=== PATIENT | male | born 1950 | race Hispanic/Latino ===

== ENCOUNTER 2018-07-10 11:44 | Emergency (ER) | payer MEDICARE ==
[2018-07-10 12:59] LABS: #Basophils 0.1 thou/uL (0.0-0.2); #Lymphocytes 1.6 thou/uL (1.20-3.40); #Monocytes 1.6 thou/uL (0.11-0.59); #Neutrophils 14.9 thou/uL (1.40-6.50); %Basophils 0.3 % (0.0-1.0); %Eosinophils 0.1 % (0.0-10.0); %Lymphocytes 8.8 % (21.0-51.0); %Monocytes 8.6 % (0.0-10.0); %Neutrophils 82.2 % (42.0-75.0); Hemoglobin 13.9 g/dL (14.0-18.0); Mean Corpuscular Hemoglobin 32.3 pg (27.0-31.0); Mean Corpuscular Volume 94.8 fL (78.0-98.0); Mean Platelet Volume 7.3 fL (7.4-10.4); Platelet Count 205 thou/uL (130-400); RBC Distribution Width 11.8 % (11.5-14.5); Red Blood Cell (RBC) Count 4.32 mill/uL (4.70-6.10); White Blood Cell (WBC) Count 18.1 thou/uL (4.8-10.8)
[2018-07-10 13:20] LABS: ALT (SGPT) 24 U/L (8-55); AST (SGOT) 33 U/L (5-34); Alkaline Phosphatase 42 U/L (40-150); Anion Gap 12 mmol/L (10-20); BUN (Urea Nitrogen) 19 mg/dL (8.4-25.7); Bilirubin, Total 0.5 mg/dL (0.2-1.2); Calc. Creatinine Clearance 0 mL/min (70-130); Calcium 9.6 mg/dL (7.8-10.44); Carbon Dioxide 28 mmol/L (23-31); Chloride 98 mmol/L (98-107); Estimated GFR-MDRD 52; Globulin 3.4 g/dL (2.4-3.5); Glucose 104 mg/dL (80-115); Potassium 3.4 mmol/L (3.5-5.1); Protein, Total 7.4 g/dL (5.8-8.1); Sodium 135 mmol/L (136-145)
[2018-07-10] MEDS ORDERED: Clindamycin/D5W 900 MG in Premix Bag 1 BAG IVPB SCH (14:45)
[2018-07-10] MEDS ORDERED: Vancomycin HCl 1.5 GM in Sodium Chloride 0.9% 250 ML 300 ML IVPB SCH (14:45)
[2018-07-10] MEDS ORDERED: Acetaminophen 500 MG TAB ONE (15:33)
== END 2018-07-10 18:16 | disposition home or self-care (01) ==
LOC: ERS 11:44
DX: L03.116 Cellulitis of left lower limb (principal); E11.8 Type 2 diabetes mellitus with unspecified complications; E78.5 Hyperlipidemia, unspecified; I10 Essential (primary) hypertension; Z79.899 Other long term (current) drug therapy; Z79.82 Long term (current) use of aspirin; Z79.84 Long term (current) use of oral hypoglycemic drugs
CPT/HCPCS: 36415; 80053; 85025; 87804; 96365; 96366; 96368; J3370; J3490; J7050

== ENCOUNTER 2018-11-17 21:27 | Inpatient (IN) | payer MEDICARE ==
[2018-11-17] MEDS ORDERED: Acetaminophen 500 MG TAB ONE (22:02)
--- NOTE | 2018-11-17 22:06 | RAD ---
EXAM: Single view of the chest HISTORY: Fever COMPARISON: 04/07/2013 FINDINGS: Single view of the chest shows a normal sized cardiomediastinal silhouette. There is no shara dence of consolidation, mass, or pleural effusion. The bones are unremarkable. IMPRESSION: No evidence of acute cardiopulmonary disease
[2018-11-17 22:09] LABS: #Basophils 0.1 thou/uL (0.0-0.2); #Lymphocytes 0.7 thou/uL (1.20-3.40); #Neutrophils 16.2 thou/uL (1.40-6.50); %Basophils 0.7 % (0.0-1.0); %Eosinophils 0.1 % (0.0-10.0); %Lymphocytes 3.8 % (21.0-51.0); %Monocytes 5.6 % (0.0-10.0); %Neutrophils 89.8 % (42.0-75.0); Mean Corpuscular HGB CONC 35.8 g/dL (32.0-36.0); Mean Corpuscular Hemoglobin 32.1 pg (27.0-31.0); Mean Corpuscular Volume 89.7 fL (78.0-98.0); Mean Platelet Volume 7.1 fL (7.4-10.4); Platelet Count 225 thou/uL (130-400); RBC Distribution Width 11.5 % (11.5-14.5); Red Blood Cell (RBC) Count 4.66 mill/uL (4.70-6.10)
[2018-11-17 22:22] LABS: ALT (SGPT) 34 U/L (8-55); AST (SGOT) 24 U/L (5-34); Albumin 4.5 g/dL (3.4-4.8); Alkaline Phosphatase 55 U/L (40-150); Anion Gap 14 mmol/L (10-20); BUN (Urea Nitrogen) 22 mg/dL (8.4-25.7); Bilirubin, Total 0.4 mg/dL (0.2-1.2); CK (CPK) 175 U/L (30-200); Calc. Creatinine Clearance 0 mL/min (70-130); Calcium 10.2 mg/dL (7.8-10.44); Carbon Dioxide 26 mmol/L (23-31); Chloride 102 mmol/L (98-107); Estimated GFR-MDRD 62; Globulin 3.4 g/dL (2.4-3.5); Glucose 131 mg/dL (80-115); Protein, Total 7.9 g/dL (5.8-8.1); Sodium 138 mmol/L (136-145)
[2018-11-17] MEDS ORDERED: Piperacillin/Tazobactam 3.375 GM VIAL ONE (22:22)
[2018-11-17 23:04] LABS: Bilirubin Negative (Negative); Blood, Urine Moderate (Negative); Clarity Slightly Cloudy (Clear); Glucose, Urine (Dipstick) Negative (Negative); Leukocyte Negative (Negative); Nitrite Negative (Negative); Protein, Urine (Dipstick) Negative (Neg-Trace); Specific Gravity, Urine 1.015 (1.005-1.030); Urobilinogen 0.2 mg/dL (0.2-1.0)
[2018-11-17 23:11] LABS: Bacteria/HPF None Seen HPF (None Seen); Hyaline Casts/LPF NONE SEEN LPF (0-3 Hyaline); Squamous Epithelial 0-3 HPF (0-3); WBC/HPF 0-3 HPF (0-3)
[2018-11-17] MEDS ORDERED: Azithromycin 250 MG TAB ONE (23:13)
[2018-11-18] MEDS ORDERED: Sodium Chloride 0.9% 1,000 ML IV SCH (00:36)
[2018-11-18] MEDS ORDERED: HYDROcodone/Acetaminophen 5/325 mg Tablet PO PRN ×2 (00:36)
[2018-11-18] MEDS ORDERED: Acetaminophen 325 MG TAB PO PRN (00:36)
[2018-11-18] MEDS ORDERED: Ondansetron ODT 4 MG TAB SL PRN (00:36)
[2018-11-18] MEDS ORDERED: Ondansetron PF 4 MG/2 ML Vial IVP PRN (00:36)
[2018-11-18 01:05] VITALS: BMI 39.0
[2018-11-18] MEDS ORDERED: Acetaminophen 650 MG Suppository PR PRN (02:02)
[2018-11-18] MEDS ORDERED: HumaLOG 300 UNITS/3 ML VIAL SC PRN ×2 (02:05)
[2018-11-18] MEDS ORDERED: Dextrose 50% Abboject 50 ML SYRINGE SLOW IVP PRN (02:05)
[2018-11-18] MEDS ORDERED: Dextrose 5% in Water 1,000 ML IV PRN (02:05)
[2018-11-18] MEDS ORDERED: Sodium Chloride 0.9% 100 ML ONE (03:33)
--- NOTE | 2018-11-18 04:23 | HP ---
CHIEF COMPLAINT: Altered mental status and left lower leg swelling and redness. HISTORY OF PRESENT ILLNESS: Mr. Dotson is a very pleasant 68-year-old man with a known history of diabetes mellitus and recurrent left leg cellulitis, who was brought in to the emergency department by his family due to an episode of confusion earlier this afternoon. The patient apparently had no loss of consciousness, syncope, or speech disturbances. No apparent neuro deficits, but was confused. He also began to have a persistent cough and then noted recurrent swelling and redness in the left leg. He has been treated for multiple episodes of left lower leg cellulitis. The patient is currently back at baseline in terms of his mentation. He is feeling flushed and on arrival was noted to have a temperature of 103.8. He is tachycardic at 125 with O2 saturations of 98% on room air. The patient denies experiencing any shortness of breath and does not smoke or require oxygen at baseline. He underwent laboratory studies, which were notable for an elevated white count of 18, but a normal lactate of 1.5. The patient had a urinalysis done showing moderate blood, otherwise unremarkable. He also had a chest x-ray done, which demonstrated no evidence of acute cardiopulmonary disease. The patient is therefore deemed to have sepsis associated with left lower leg cellulitis. Apparently, he did travel to [place], but that was 3 weeks ago. 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 He denies having any injury to the left lower leg, but there is a very small excoriation on the anterior leg. No open wound. No oozing or discharge. No bleeding. He reports 8/10 sensation in the calf. Has not had any recent long car drives or flights. REVIEW OF SYSTEMS: The patient denies having any fevers until today and appears feeling generally malaise. Denies having any nausea or vomiting. No abdominal pain or cramping. He has been moving his bowels as normal. Denies having any dysuria, or hematuria. He says the cough he developed today was dry and he denies experiencing any hemoptysis. No shortness of breath or chest pain. No dizziness or blurred vision. No speech changes. No extremity weakness or numbness. All other review of systems are negative. PAST MEDICAL HISTORY: 1. Diabetes type 2. 2. Hyperlipidemia. 3. Hypertension. 4. Alcohol abuse. 5. Morbid obesity. PAST SURGICAL HISTORY: Right middle finger surgery. SOCIAL HISTORY: The patient states he no longer drinks on a daily basis, but he does drink two to three 12-ounce beers on Monday and again on Monday. Denies any tobacco use or illicit drug use. He is fully independent. ALLERGIES: NO KNOWN DRUG ALLERGIES. CURRENT MEDICATIONS: 1. Lisinopril. 2. Amlodipine. 3. Aspirin 81 mg p.o. daily. 4. Metformin 500 mg once a day. PHYSICAL EXAMINATION: GENERAL: The patient appears flushed, but in no acute distress. VITAL SIGNS: Temperature 98.4, pulse 119, respirations 20, O2 saturation 93% on 3 L per nasal cannula, blood pressure 115/59. HEENT: Normocephalic and atraumatic. Pupils are equal, round, and reactive to light. Sclerae are icterus. Oropharynx is clear. Oropharynx without any pharyngeal erythema or exudates. No lesions in the oral mucosa. NECK: Supple without lymphadenopathy. LUNGS: Clear to auscultation with reduced breath sounds at the bilateral bases. CARDIAC: Regular rate and rhythm. No chest wall tenderness. ABDOMEN: Obese, distended, but soft. No guarding or rigidity. No renal angle tenderness. EXTREMITIES: Left lower leg notable for swelling, warmth, and erythema of the lower leg. The patient states the erythema has improved since leaving the ER. No pitting edema present. Small excoriation on the lateral aspect of the lower leg measuring approximately a cm. NEUROLOGIC: Alert and oriented x3. No neuro deficits. Power 5/5 in all limbs. Facial movements normal. Sensation intact. No tongue deviation. Speech normal. SKIN: As mentioned, the patient with facial flushing. LABORATORY DATA: White blood count 19, hemoglobin 15, hematocrit 41.8, platelets 225. Sodium 138, potassium 4.0, BUN 22, creatinine 1.17, GFR 62, glucose 134, lactic acid 1.5, calcium 10.2, total bilirubin 0.4, AST 24, ALT 34, alkaline phosphatase 55. CK 175. Troponin negative. BNP 27.7. Albumin 4.5. Urinalysis, moderate blood, otherwise unremarkable. IMAGING DATA: As mentioned above, no acute cardiopulmonary process noted. IMPRESSION AND PLAN: Mr. Dotson is a pleasant 68-year-old man being admitted for management of the followin. Sepsis secondary to left leg cellulitis. The patient has had frequent infections in the past. We will continue current antibiotics of Zosyn and vancomycin. The patient with a cough that began today and low sats requiring oxygen with no known history of COPD or underlying lung disease. Azithromycin will be added on. We will give Tessalon Perles and guaifenesin. We will continue to monitor. At present, cough is nonproductive. We will add on respiratory viral pathogen panel. Blood cultures are pending. 2. Per Dr. Chapman's recommendation consult has been placed to Dr. Sanchez given the fact that he has had such frequent infections with cellulitis. We will obtain venous Doppler and add on D-dimer. 3. Altered mental status. Believed to be associated with infection. He did have a CT brain requested prior to coming here and that has not been done yet. We will not cancel although the patient is at baseline and denies any headaches, neuro deficits, speech or vision disturbances and no syncope or loss of consciousness. 4. Diabetes mellitus. Insulin sliding scale initiated. We will continue to monitor glucose. 5. Hypertension. Resume home medications and monitor blood pressure. 6. GI prophylaxis. 7. Full code status. His surrogate decision maker is his , Nellie Dotson. The patient's case was discussed with Dr. Chapman, who agrees with the plan of care as described above. Job ID: [id number]
[2018-11-18] MEDS: Acetaminophen 325 MG TAB PO PRN ×2 (05:06→21:13)
[2018-11-18] MEDS ORDERED: Piperacillin/Tazobactam 3.375 GM in Sodium Chloride 0.9% 100 ML IVPB SCH ×2 (06:00→15:00)
[2018-11-18 07:43] LABS: Lactic Acid 1.9 mmol/L (0.5-2.2)
[2018-11-18 07:45] LABS: Alcohol Less than 10 mg/dL (Less than 10); Anion Gap 10 mmol/L (10-20); BUN (Urea Nitrogen) 16 mg/dL (8.4-25.7); Calc. Creatinine Clearance 103 mL/min (70-130); Calcium 8.9 mg/dL (7.8-10.44); Carbon Dioxide 27 mmol/L (23-31); Chloride 103 mmol/L (98-107); Estimated GFR-MDRD 70; Glucose 133 mg/dL (80-115); Potassium 3.5 mmol/L (3.5-5.1); Sodium 136 mmol/L (136-145)
[2018-11-18] MEDS: Famotidine/PF 20 mg/2ml Vial SLOW IVP SCH ×2 (09:37→21:12)
[2018-11-18] MEDS: Amlodipine 10 MG TAB PO SCH (09:37)
[2018-11-18] MEDS: Lisinopril/Hydrochlorothiazide 20 mg/12.5 mg Tablet PO SCH ×2 (09:37→21:12)
[2018-11-18] MEDS ORDERED: Vancomycin HCl 1 GM in Premix Bag 1 BAG IVPB SCH ×2 (10:00→21:00)
--- NOTE | 2018-11-18 11:05 | ULT ---
EXAM: Bilateral lower extremity venous duplex: Deep veins evaluated with color Doppler, spectral analysis, and compression. INDICATIONS: Bilateral lower extremity pain and edema. FINDINGS: Deep veins interrogated include common femoral vein, femoral vein, popliteal vein, and post erior tibial vein. These veins show normal compression and blood flow. No evidence of DVT. IMPRESSION: Negative Bilateral venous duplex exam.
--- NOTE | 2018-11-18 11:32 | RAD ---
CHEST 2 VIEWS: HISTORY: Evaluate for fluid overload. COMPARISON: 11/17/2018. FINDINGS: Atherosclerosis of the aorta. Cardiomegaly. Pulmonary vessels are prominent. Costophrenic angles a re clear. Hyperinflation with chronic changes. No consolidation or mass. No pneumothorax or osseou s abnormalities. There is a sclerotic focus involving the proximal left humerus, incompletely evalua zachary. 3. Incompletely evaluated sclerotic focus in the proximal humerus. IMPRESSION: 1. Hyperinflation. Chronic changes. 2. Cardiomegaly. Correlate for volume overload. POS: OFF
[2018-11-18 12:04] LABS: Band 5 % (5-11); Hemoglobin 13.5 g/dL (14.0-18.0); Lymphocytes 8 % (21-51); MDiff Complete? YES; Mean Corpuscular HGB CONC 34.4 g/dL (32.0-36.0); Mean Corpuscular Hemoglobin 32.4 pg (27.0-31.0); Mean Corpuscular Volume 94.2 fL (78.0-98.0); Mean Platelet Volume 7.6 fL (7.4-10.4); Monocytes 2 % (0-10); Neutrophil 76 % (42-75); Platelet Count 179 thou/uL (130-400); Platelet Morphology Comment Appears Adequate; RBC Distribution Width 11.9 % (11.5-14.5); Reactive Lymphocytes 9 % (0-10); Red Blood Cell (RBC) Count 4.15 mill/uL (4.70-6.10); White Blood Cell (WBC) Count 19.7 thou/uL (4.8-10.8)
--- NOTE | 2018-11-18 13:35 | PDOC.PN ---
- Subjective Encounter Start Date: 11/18/18 Encounter Start Time: 13:33 Patient remains sleepy. Daughter is in the room. She says he is sleepy and "delerious". She also says this is consistent with the way he has behaved in the past when he has had infection in his leg. She does agree that he snores loudly. Dr. Mayer has recommended a sleep study, be he has not done that yet. - Objective Resuscitation Status - Order Detail: 11/18/18 02:02 Resuscitation Status Routine Co-Sign Provider: Resuscitation Status: FULL: Full Resuscitation Vital Signs & Weight: Vital Signs (12 hours) Temp Pulse Resp BP Pulse Ox 11/18/18 11:34 98.7 F 83 18 141/67 H 93 L 11/18/18 07:26 99.3 F 83 20 124/56 L 96 11/18/18 05:57 99.2 F 11/18/18 04:00 101.2 F H 107 H 18 144/74 H 95 Weight Weight 241 lb 12.8 oz I&O: 11/17/18 11/18/18 11/19/18 06:59 06:59 06:59 Intake Total 120 Output Total 200 475 Balance -80 -475 Result Diagrams: 11/18/18 11:15 11/18/18 07:07 Additional Labs: Accuchecks 11/18/18 11/18/18 11/17/18 10:56 05:53 21:50 POC Glucose 161 H 134 H 134 H Phys Exam - Physical Examination Constitutional: NAD Obese Very large neck/double chin. Respiratory: no wheezing Not snoring and sounds like he is moving air reasonably well. Cardiovascular: RRR, no significant murmur Gastrointestinal: soft, non-tender, no distention, positive bowel sounds LLE with dense erythema and warmth. Blanches. No discrete lesions. Somnolent. Will awaken, but right back to sleep. Dx/Plan (1) Sepsis Code(s): A41.9 - SEPSIS, UNSPECIFIED ORGANISM Status: Acute (2) Cellulitis of left leg without foot Code(s): L03.116 - CELLULITIS OF LEFT LOWER LIMB Status: Acute (3) Obesity (BMI 30-39.9) Code(s): E66.9 - OBESITY, UNSPECIFIED Status: Acute (4) Diabetes mellitus Code(s): E11.9 - TYPE 2 DIABETES MELLITUS WITHOUT COMPLICATIONS Status: Acute (5) Acute metabolic encephalopathy Code(s): G93.41 - METABOLIC ENCEPHALOPATHY Status: Acute (6) HTN (hypertension) Code(s): I10 - ESSENTIAL (PRIMARY) HYPERTENSION Status: Acute - Plan * CT head. Apparently was requested for the ED to perform prior to transfer, but not done yet. * ABG. May have some hypoventilation of obesity syndrome or JENNIFER with retention to explain the encephalopathy. * Encephalopathy likely just from sepsis. * Renew Vanc/Zosyn. * Doesn't sound like his alcohol use is substantial enough to cause serious consequences with cessation, but will monitor closely.
[2018-11-18 14:19] LABS: Actual Bicarbonate (HCO3a) 26.5 mEq/L (22-28); Base Excess (BEa) 3.3 mEq/L (-2.0 to +3.0); CO2 Tension 35.6 mmHg (35.0-45.0); Calcium, Ionized 1.16 mmol/L (1.12-1.30); Carboxyhemoglobin (COHb) 0.9 gm% (0.0-3.0); Hemoglobin (Hb) 13.3 g/dL (14.0-18.0); Potassium - ABG Lab 3.35 mmol/L (3.70-5.30); pH, Arterial 7.49 (7.35-7.45)
[2018-11-18 14:20] LABS: O2 Tension (PaO2) 57.5 mmHg (> 80.0); Puncture Site RRA
--- NOTE | 2018-11-18 14:50 | CT ---
CT Brain WO Con: 11/18/2018 1:30 PM CLINICAL HISTORY: Encephalopathy. COMPARISON: None. FINDINGS: Hemorrhage: None. Ventricular system: Normal in size and morphology for the patient's age. Cerebral parenchyma: Microvascular ischemic disease Midline shift: None. 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 Visualized Paranasal sinuses: Clear. IMPRESSION: No acute intracranial abnormalities. Pineal cyst. Follow-up pre and postcontrast brain MRI, nonemergent, is recommended for further evalua tion. CODE T
[2018-11-18] MEDS: cefTRIAXone\\ROCEPHIN 1 GM in Sodium Chloride 0.9% 100 ML IVPB SCH (17:55)
--- NOTE | 2018-11-18 19:38 | CON ---
DATE OF CONSULTATION: REASON FOR CONSULTATION: Cellulitis. HISTORY OF PRESENT ILLNESS: A 68-year-old with history of obesity, alcohol dependency syndrome, type 2 diabetes, prior episodes of cellulitis, developed confusional state and erythematous changes in left leg. Apparently, he had been in the emergency room, but they did not have beds, so he was treated in the outpatient setting with reportedly a quinolone by his primary physician. Because of persistence of changes in the altered mental status, he was admitted. He also complains of dysuria for the past 24 to 48 hours. No headaches. No visual symptoms, sore throat, odynophagia, or dysphagia. No dyspnea or cough. No chest pain. No abdominal pain. No diarrhea. No joint symptoms. No neurological symptoms except for altered mental status, which has resolved. PAST MEDICAL HISTORY: Type 2 diabetes; hyperlipidemia; obesity; hypertension; alcohol dependency syndrome; and prior episodes of cellulitis, this is the #4th. SOCIAL HISTORY: Apparently has cut down on the amount of drinking. He does more of a binge drinking pattern on the weekends. ALLERGIES: NONE. FAMILY HISTORY: Diabetes. CURRENT MEDICATIONS: 1. Tylenol. 2. Norvasc. 3. Aspirin. 4. Lipitor. 5. Azithromycin. 6. Famotidine. 7. Lisinopril. 8. Zosyn. 9. Vancomycin. PHYSICAL EXAMINATION: VITAL SIGNS: T-max 101.2, blood pressure 140/60, pulse 83, and respirations 18. SKIN: Shows circumferential erythema, left leg, in very symmetric distribution extending from the area immediately below the knee all the way to the ankle. HEENT: He has skin flushing in the facial area. Some periorbital edema. Mild conjunctival hyperemia. Pupils are equal. Oral cavity normal. NECK: Supple. No jugular vein distention. No lymphadenopathy. LUNGS: Symmetric air entry. No wheezing. No crackles. HEART: S1 and S2. Regular rate. ABDOMEN: Soft. Globose, not tender. No ascites. No bladder distention. No organomegaly. EXTREMITIES: No joint inflammatory activity. Pulses are 1+ in dorsalis pedis. Able to move extremities equally. NEUROLOGIC: Awake, oriented, follows commands. LABORATORY DATA: White cell count is 18,000, now 19,000; hemoglobin 13; platelets 179, neutrophil percentage is down to 76%. INR was not done. ABG; pH of 7.49, pCO2 of 35, and pO2 of 57. Chemistry was unremarkable except for glucose of 131. Liver profile normal. Albumin 4.5. Urinalysis from 11/17 was normal except for moderate blood. Respiratory virus PCR negative. IMAGING DATA: Brain CT with no significant findings except for pineal cyst. Followup MRI recommended. Chest x-ray; hyperinflation, cardiomegaly. ASSESSMENT: 1. Obesity. 2. Alcohol dependency syndrome. 3. Type 2 diabetes with recurrent episodes of cellulitis at this time in the left leg. PLAN: Switch him to Rocephin. Discontinue other antimicrobials. Beta-hemolytic streptococci is the most likely scenario. He may have steatohepatitis associated with it. Once there is further improvement, transitioned to oral Keflex for discharge planning and then suppressive Pen VK for protracted period of time and compressive stockings. He does have dysuria, but urinalysis was normal. May have prostatitis or other urinary issues such as stricture. May need Urology consultation if dysuria persists. Job ID: [id number]
[2018-11-18] MEDS ORDERED: Non-Formulary Item 1 EACH (Pravastatin Sodium [Pravachol] 80 MG) PO SCH (21:00)
[2018-11-18] MEDS: Atorvastatin Calcium 20 MG TAB PO SCH (21:12)
[2018-11-18] MEDS ORDERED: Vancomycin HCl 1.25 GM in Sodium Chloride 0.9% 250 ML 250 ML IVPB SCH (22:00)
[2018-11-18] MEDS ORDERED: Azithromycin 500 MG in Sodium Chloride 0.9% 250 ML 250 ML IVPB SCH (23:00)
[2018-11-19] MEDS: metFORMIN 500 MG TAB PO SCH (09:33)
[2018-11-19] MEDS: Amlodipine 10 MG TAB PO SCH (09:33)
[2018-11-19] MEDS: Aspirin Chewable 81 MG TAB PO SCH (09:34)
[2018-11-19] MEDS: Famotidine/PF 20 mg/2ml Vial SLOW IVP SCH (09:34)
[2018-11-19] MEDS: Lisinopril/Hydrochlorothiazide 20 mg/12.5 mg Tablet PO SCH ×2 (09:34→21:27)
--- NOTE | 2018-11-19 10:44 | PDOC.PN ---
- Subjective Encounter Start Date: 11/19/18 Encounter Start Time: 07:50 -: old records requested/rev Patient seen and examined. No new complaints. No overnight events - Objective Resuscitation Status - Order Detail: 11/18/18 02:02 Resuscitation Status Routine Co-Sign Provider: Resuscitation Status: FULL: Full Resuscitation MAR Reviewed: Yes Vital Signs & Weight: Vital Signs (12 hours) Temp Pulse Resp BP BP Pulse Ox 11/19/18 09:34 75 113/54 L 11/19/18 09:33 75 113/54 L 11/19/18 09:00 98.6 F 75 19 113/54 L 95 11/19/18 04:14 98.5 F 74 17 116/56 L 92 L 11/19/18 00:14 98.4 F 79 20 104/54 L 96 Weight Weight 238 lb 6.4 oz I&O: 11/18/18 11/19/18 11/20/18 06:59 06:59 06:59 Intake Total 120 300 Output Total 200 825 Balance -80 -525 Result Diagrams: 11/18/18 11:15 11/18/18 07:07 Additional Labs: Accuchecks 11/19/18 11/18/18 11/18/18 06:00 21:06 16:55 POC Glucose 116 H 122 H 132 H 11/18/18 10:56 POC Glucose 161 H EKG Reviewed by me: Yes Phys Exam - Physical Examination Constitutional: NAD HEENT: PERRLA, moist MMs, sclera anicteric Neck: no JVD, supple Respiratory: no wheezing, no rales, no rhonchi Cardiovascular: RRR, no significant murmur, no rub Gastrointestinal: soft, non-tender, no distention, positive bowel sounds obesity+ left leg cellulitis Neurological: non-focal, normal sensation, moves all 4 limbs Lymphatic: no nodes Psychiatric: normal affect, A&O x 3 Skin: no rash, normal turgor Dx/Plan (1) Acute metabolic encephalopathy Code(s): G93.41 - METABOLIC ENCEPHALOPATHY Status: Acute (2) Cellulitis of left leg without foot Code(s): L03.116 - CELLULITIS OF LEFT LOWER LIMB Status: Acute (3) Sepsis Code(s): A41.9 - SEPSIS, UNSPECIFIED ORGANISM Status: Acute (4) Diabetes type 2, controlled Code(s): E11.9 - TYPE 2 DIABETES MELLITUS WITHOUT COMPLICATIONS Status: Chronic (5) Dyslipidemia Code(s): E78.5 - HYPERLIPIDEMIA, UNSPECIFIED Status: Chronic (6) HTN (hypertension) Code(s): I10 - ESSENTIAL (PRIMARY) HYPERTENSION Status: Chronic (7) Obesity (BMI 30-39.9) Code(s): E66.9 - OBESITY, UNSPECIFIED Status: Chronic - Plan cont current plan of care, plan discussed w/ family, continue antibiotics * continue rocephin as per ID * medication reviewed as below * symptomatic treatment * pt is clinically improving. * repeat labs tomorrow * pain control Review of Systems - Review of Systems ENT: negative: Ear Pain, Ear Discharge, Nose Pain, Nose Discharge, Nose Congestion, Mouth Pain, Mouth Swelling, Throat Pain, Throat Swelling, Other Respiratory: negative: Cough, Dry, Shortness of Breath, Hemoptysis, SOB with Excertion, Pleuritic Pain, Sputum, Wheezing Cardiovascular: negative: chest pain, palpitations, orthopnea, paroxysmal nocturnal dyspnea, edema, light headedness, other Gastrointestinal: negative: Nausea, Vomiting, Abdominal Pain, Diarrhea, Constipation, Melena, Hematochezia, Other Genitourinary: negative: Dysuria, Frequency, Incontinence, Hematuria, Retention , Other Musculoskeletal: Leg Pain. negative: Neck Pain, Shoulder Pain, Arm Pain, Back Pain, Hand Pain, Foot Pain, Other - Medications/Allergies Allergies/Adverse Reactions: Allergies Allergy/AdvReac Type Severity Reaction Status Date / Time sulfamethoxazole Allergy Verified 11/18/18 04:39 [From Bactrim] trimethoprim [From Bactrim] Allergy Verified 11/18/18 04:39 Medications: Current Medications Acetaminophen (Tylenol) 650 mg DC Q4H PRN PRN Reason: Headache/Fever/Mild Pain (1-3) Acetaminophen (Tylenol) 650 mg PO Q4H PRN PRN Reason: Fever > 101 Last Admin: 11/18/18 21:13 Dose: 650 mg Amlodipine Besylate (Norvasc) 10 mg PO DAILY [facility] Last Admin: 11/19/18 09:33 Dose: 10 mg Aspirin (Aspirin Chewable) 81 mg PO DAILY [facility] Last Admin: 11/19/18 09:34 Dose: 81 mg Atorvastatin Calcium (Lipitor) 20 mg PO [facility] Last Admin: 11/18/18 21:12 Dose: 20 mg Dextrose/Water (Dextrose 50%) 25 gm SLOW IVP PRN PRN PRN Reason: Hypoglycemia Famotidine (Pepcid) 20 mg SLOW IVP Q12HR [facility] Last Admin: 11/19/18 09:34 Dose: 20 mg Glucagon (Glucagon) 1 mg IM PRN PRN PRN Reason: Hypoglycemia Lisinopril/HCTZ (Prinizide 20-12.5) 1 tab PO BID [facility] Last Admin: 11/19/18 09:34 Dose: 1 tab Dextrose/Water (D5w) 1,000 mls @ 0 mls/hr IV .Q0M PRN PRN Reason: Hypoglycemia Ceftriaxone Sodium 1 gm/ (Sodium Chloride) 100 mls @ 200 mls/hr IVPB 1600 [facility] Last Admin: 11/18/18 17:55 Dose: 100 mls Insulin Human Lispro (Humalog) 0 units SC .MILD SLIDING SCALE PRN PRN Reason: Mild Correctional Scale Insulin Human Lispro (Humalog) 0 units SC .BEDTIME SLIDING SC PRN PRN Reason: Bedtime Correctional Scale Metformin HCl (Glucophage) 500 mg PO QAM-WM [facility] Last Admin: 11/19/18 09:33 Dose: 500 mg Miscellaneous Medication (Pharmacy To Dose) 1 each IVPB PRN PRN PRN Reason: . Sodium Chloride (Flush - Normal Saline) 10 ml IVF Q12HR [facility] Last Admin: 11/19/18 09:34 Dose: 10 ml Sodium Chloride (Flush - Normal Saline) 10 ml IVF PRN PRN PRN Reason: Saline Flush Last Admin: 11/18/18 17:58 Dose: 10 ml
[2018-11-19] MEDS ORDERED: HYDROcodone/Acetaminophen 5/325 mg Tablet PO PRN (11:32)
[2018-11-19] MEDS ORDERED: hydrALAZINE 20 MG/ML VIAL SLOW IVP PRN (11:32)
[2018-11-19] MEDS ORDERED: Loperamide HCl 2 MG CAP PO PRN (11:32)
[2018-11-19] MEDS ORDERED: Diabetic Tussin 200 MG/10 ML UDCUP PO PRN (11:32)
[2018-11-19] MEDS ORDERED: Senokot S 8.6-50 MG TAB PO PRN (11:32)
[2018-11-19] MEDS ORDERED: Sodium Chloride 0.65% Nasal 44 ML BOT EA NARE PRN (11:32)
[2018-11-19] MEDS ORDERED: Ondansetron PF 4 MG/2 ML Vial IVP PRN (11:32)
[2018-11-19] MEDS ORDERED: Cepastat Lozenges 1 LOZ PO PRN (11:32)
[2018-11-19] MEDS ORDERED: Zolpidem Tartrate 5 MG TAB PO PRN (11:32)
[2018-11-19] MEDS ORDERED: Artificial Tears 18 DROP/0.9 ML EA EYE PRN (11:32)
[2018-11-19] MEDS ORDERED: Loratadine 10 MG TAB PO PRN (11:32)
[2018-11-19] MEDS ORDERED: Bisacodyl 10 MG SUPP PR PRN (11:32)
[2018-11-19] MEDS ORDERED: Ondansetron ODT 4 MG TAB PO PRN (11:32)
[2018-11-19] MEDS: cefTRIAXone\\ROCEPHIN 1 GM in Sodium Chloride 0.9% 100 ML IVPB SCH (15:39)
[2018-11-19] MEDS: Atorvastatin Calcium 20 MG TAB PO SCH (21:27)
[2018-11-19] MEDS: Famotidine 20 MG TAB PO SCH (21:27)
[2018-11-19] MEDS: Acetaminophen 325 MG TAB PO PRN (21:28)
[2018-11-19 22:25] LABS: Vancomycin, Trough 1.7 ug/mL
[2018-11-20 06:11] LABS: #Eosinphils 0.2 thou/uL (0.0-0.7); #Lymphocytes 1.7 thou/uL (1.20-3.40); #Monocytes 1.4 thou/uL (0.11-0.59); #Neutrophils 7.4 thou/uL (1.40-6.50); %Basophils 0.2 % (0.0-1.0); %Eosinophils 1.4 % (0.0-10.0); %Lymphocytes 16.1 % (21.0-51.0); %Monocytes 12.8 % (0.0-10.0); %Neutrophils 69.5 % (42.0-75.0); Hemoglobin 13.2 g/dL (14.0-18.0); Mean Corpuscular HGB CONC 33.6 g/dL (32.0-36.0); Mean Corpuscular Hemoglobin 31.7 pg (27.0-31.0); Mean Corpuscular Volume 94.3 fL (78.0-98.0); Mean Platelet Volume 7.9 fL (7.4-10.4); Platelet Count 173 thou/uL (130-400); RBC Distribution Width 11.8 % (11.5-14.5); Red Blood Cell (RBC) Count 4.16 mill/uL (4.70-6.10); White Blood Cell (WBC) Count 10.7 thou/uL (4.8-10.8)
[2018-11-20 06:32] LABS: Anion Gap 11 mmol/L (10-20); BUN (Urea Nitrogen) 11 mg/dL (8.4-25.7); CRP (Inflammatory) 16.14 mg/dL (= or < 0.5); Calc. Creatinine Clearance 116 mL/min (70-130); Calcium 9.3 mg/dL (7.8-10.44); Carbon Dioxide 30 mmol/L (23-31); Chloride 100 mmol/L (98-107); Estimated GFR-MDRD 82; Glucose 104 mg/dL (80-115); Potassium 3.5 mmol/L (3.5-5.1); Sodium 137 mmol/L (136-145)
[2018-11-20] MEDS ORDERED: Sodium Chloride 0.9% 10 ML ONE (07:59)
[2018-11-20] MEDS: metFORMIN 500 MG TAB PO SCH (08:41)
[2018-11-20] MEDS: Amlodipine 10 MG TAB PO SCH (08:41)
[2018-11-20] MEDS: Famotidine 20 MG TAB PO SCH ×2 (08:41→20:31)
[2018-11-20] MEDS: Saccharomyces boulardii 250 MG CAP PO SCH (08:41)
[2018-11-20] MEDS: Aspirin Chewable 81 MG TAB PO SCH (08:41)
[2018-11-20] MEDS: Lisinopril/Hydrochlorothiazide 20 mg/12.5 mg Tablet PO SCH ×2 (08:41→20:31)
--- NOTE | 2018-11-20 11:08 | PDOC.PN ---
- Subjective Encounter Start Date: 11/20/18 Encounter Start Time: 07:50 Patient seen and examined. No new complaints. No overnight events pt has less leg pain, less edema and able to walk - Objective Resuscitation Status - Order Detail: 11/18/18 02:02 Resuscitation Status Routine Co-Sign Provider: Resuscitation Status: FULL: Full Resuscitation MAR Reviewed: Yes Vital Signs & Weight: Vital Signs (12 hours) Temp Pulse Resp BP Pulse Ox 11/20/18 08:40 99.3 F 73 18 130/60 94 L 11/20/18 04:05 98.5 F 72 18 125/58 L 92 L 11/20/18 00:00 98.3 F 68 20 111/56 L 95 Weight Weight 238 lb 6.4 oz I&O: 11/19/18 11/20/18 11/21/18 06:59 06:59 06:59 Intake Total 300 1260 Output Total 825 Balance -525 1260 Result Diagrams: 11/20/18 05:26 11/20/18 05:26 Additional Labs: Accuchecks 11/20/18 11/19/18 11/19/18 05:19 20:38 17:02 POC Glucose 112 H 121 H 107 EKG Reviewed by me: Yes Phys Exam - Physical Examination Constitutional: NAD HEENT: PERRLA, moist MMs, sclera anicteric Neck: no JVD, supple Respiratory: no wheezing, no rales, no rhonchi Cardiovascular: RRR, no significant murmur, no rub Gastrointestinal: soft, non-tender, no distention, positive bowel sounds Musculoskeletal: pulses present left leg cellulitis improving Neurological: non-focal, normal sensation, moves all 4 limbs Lymphatic: no nodes Psychiatric: normal affect, A&O x 3 Skin: no rash, normal turgor Dx/Plan (1) Acute metabolic encephalopathy Code(s): G93.41 - METABOLIC ENCEPHALOPATHY Status: Acute (2) Cellulitis of left leg without foot Code(s): L03.116 - CELLULITIS OF LEFT LOWER LIMB Status: Acute (3) Sepsis Code(s): A41.9 - SEPSIS, UNSPECIFIED ORGANISM Status: Acute (4) Diabetes type 2, controlled Code(s): E11.9 - TYPE 2 DIABETES MELLITUS WITHOUT COMPLICATIONS Status: Chronic (5) Dyslipidemia Code(s): E78.5 - HYPERLIPIDEMIA, UNSPECIFIED Status: Chronic (6) HTN (hypertension) Code(s): I10 - ESSENTIAL (PRIMARY) HYPERTENSION Status: Chronic (7) Obesity (BMI 30-39.9) Code(s): E66.9 - OBESITY, UNSPECIFIED Status: Chronic - Plan cont current plan of care, plan discussed w/ family, continue antibiotics * medication reviewed as below * symptomatic treatment * continue rocephin * DC tele * transfer to medical * expecting discharge tomorrow on oral antibiotics * pain controlled. Review of Systems - Review of Systems Eyes: negative: Pain, Vision Change, Conjunctivae Inflammation, Eyelid Inflammation, Redness, Other ENT: negative: Ear Pain, Ear Discharge, Nose Pain, Nose Discharge, Nose Congestion, Mouth Pain, Mouth Swelling, Throat Pain, Throat Swelling, Other Respiratory: negative: Cough, Dry, Shortness of Breath, Hemoptysis, SOB with Excertion, Pleuritic Pain, Sputum, Wheezing Cardiovascular: negative: chest pain, palpitations, orthopnea, paroxysmal nocturnal dyspnea, edema, light headedness, other Gastrointestinal: negative: Nausea, Vomiting, Abdominal Pain, Diarrhea, Constipation, Melena, Hematochezia, Other Genitourinary: negative: Dysuria, Frequency, Incontinence, Hematuria, Retention , Other Musculoskeletal: Leg Pain. negative: Neck Pain, Shoulder Pain, Arm Pain, Back Pain, Hand Pain, Foot Pain, Other - Medications/Allergies Allergies/Adverse Reactions: Allergies Allergy/AdvReac Type Severity Reaction Status Date / Time sulfamethoxazole Allergy Verified 11/18/18 04:39 [From Bactrim] trimethoprim [From Bactrim] Allergy Verified 11/18/18 04:39 Medications: Current Medications Acetaminophen (Tylenol) 650 mg PO Q4H PRN PRN Reason: Fever > 101 Last Admin: 11/19/18 21:28 Dose: 650 mg Hydrocodone Bitart/Acetaminophen ([place] 5/325) 1 tab PO Q4H PRN PRN Reason: Moderate Pain (4-6) Amlodipine Besylate (Norvasc) 10 mg PO DAILY [facility] Last Admin: 11/20/18 08:41 Dose: 10 mg Artificial Tears (Tears Naturale) 2 drop EA EYE PRN PRN PRN Reason: Dry Eyes Aspirin (Aspirin Chewable) 81 mg PO DAILY [facility] Last Admin: 11/20/18 08:41 Dose: 81 mg Atorvastatin Calcium (Lipitor) 20 mg PO HS [facility] Last Admin: 11/19/18 21:27 Dose: 20 mg Bisacodyl (Dulcolax) 10 mg OR DAILYPRN PRN PRN Reason: Constipation Dextrose/Water (Dextrose 50%) 25 gm SLOW IVP PRN PRN PRN Reason: Hypoglycemia Famotidine (Pepcid) 20 mg PO BID [facility] Last Admin: 11/20/18 08:41 Dose: 20 mg Glucagon (Glucagon) 1 mg IM PRN PRN PRN Reason: Hypoglycemia Guaifenesin (Robitussin Sf) 200 mg PO Q4H PRN PRN Reason: Cough Lisinopril/HCTZ (Prinizide 20-12.5) 1 tab PO BID [facility] Last Admin: 11/20/18 08:41 Dose: 1 tab Hydralazine HCl (Apresoline) 10 mg SLOW IVP Q4H PRN PRN Reason: SBP > 180 and HR < 70 Dextrose/Water (D5w) 1,000 mls @ 0 mls/hr IV .Q0M PRN PRN Reason: Hypoglycemia Ceftriaxone Sodium 1 gm/ (Sodium Chloride) 100 mls @ 200 mls/hr IVPB 1600 [facility] Last Admin: 11/19/18 15:39 Dose: 100 mls Insulin Human Lispro (Humalog) 0 units SC .MILD SLIDING SCALE PRN PRN Reason: Mild Correctional Scale Insulin Human Lispro (Humalog) 0 units SC .BEDTIME SLIDING SC PRN PRN Reason: Bedtime Correctional Scale Loperamide HCl (Imodium) 2 mg PO PRN PRN PRN Reason: Diarrhea/Loose Stools Loratadine (Claritin) 10 mg PO DAILYPRN PRN PRN Reason: Sinus Symptoms Metformin HCl (Glucophage) 500 [facility] Last Admin: 11/20/18 08:41 Dose: 500 mg Ondansetron HCl (Zofran Odt) 4 mg PO Q6H PRN PRN Reason: Nausea/Vomiting Ondansetron HCl (Zofran) 4 mg IVP Q6H PRN PRN Reason: Nausea/Vomiting Saccharomyces Boulardii (Florastor) 250 mg PO DAILY [facility] Last Admin: 11/20/18 08:41 Dose: 250 mg Senna/Docusate Sodium (Senokot S) 2 tab PO BID PRN PRN Reason: Constipation Sodium Chloride (Flush - Normal Saline) 10 ml IVF Q12HR [facility] Last Admin: 11/20/18 08:42 Dose: 10 ml Sodium Chloride (Flush - Normal Saline) 10 ml IVF PRN PRN PRN Reason: Saline Flush Last Admin: 11/18/18 17:58 Dose: 10 ml Sodium Chloride (Ten Sleep Nasal [place] 0.65%) 0 ml EA NARE QIDPRN PRN PRN Reason: Nasal Congestion Throat Lozenges (Cepastat Lozenges) 1 donte PO Q2H PRN PRN Reason: Sore Throat Zolpidem Tartrate (Ambien) 5 mg PO HSPRN PRN PRN Reason: Insomnia
[2018-11-20] MEDS: cefTRIAXone\\ROCEPHIN 1 GM in Sodium Chloride 0.9% 100 ML IVPB SCH (15:56)
[2018-11-20] MEDS: Atorvastatin Calcium 20 MG TAB PO SCH (20:31)
[2018-11-21] MEDS: Saccharomyces boulardii 250 MG CAP PO SCH (08:23)
[2018-11-21] MEDS: Famotidine 20 MG TAB PO SCH (08:23)
[2018-11-21] MEDS: metFORMIN 500 MG TAB PO SCH (08:23)
[2018-11-21] MEDS: Aspirin Chewable 81 MG TAB PO SCH (08:23)
[2018-11-21] MEDS: Amlodipine 10 MG TAB PO SCH (08:23)
[2018-11-21] MEDS: Lisinopril/Hydrochlorothiazide 20 mg/12.5 mg Tablet PO SCH (09:07)
[2018-11-21 12:36] VITALS: BP 114/68; TEMP 98.5
--- NOTE | 2018-11-21 13:57 | DIS ---
DATE OF ADMISSION: 11/17/2018 DATE OF DISCHARGE: 11/21/2018 PRIMARY CARE PHYSICIAN: Reji Mayer MD DISCHARGE DISPOSITION: Home. PRIMARY DISCHARGE DIAGNOSIS: Sepsis due to left lower extremity cellulitis and acute metabolic encephalopathy, improved, sepsis resolved. SECONDARY DISCHARGE DIAGNOSES: Obesity with body mass index 38, hypertension, dyslipidemia, diabetes type 2. PRIMARY PROCEDURE/OPERATION: None. RADIOLOGICAL INVESTIGATIONS: Chest x-ray normal. CT brain negative for any acute intracranial process. SIGNIFICANT LABORATORY DATA: WBC 10.7, hemoglobin 13.2, platelet 173. D-dimer 0.35. Sodium 137, potassium 3.5, BUN 11, creatinine 0.92. CRP 16.14. Urinalysis normal. Blood culture negative. Urine culture negative. Influenza negative. Respiratory virus panel negative. DISCHARGE MEDICATIONS: 1. Amlodipine 10 mg p.o. daily. 2. Aspirin 81 mg p.o. daily. 3. Prinzide 20/12.5 one tablet p.o. b.i.d. 4. Metformin 500 mg p.o. daily. 5. Pravastatin 80 mg p.o. at bedtime. 6. Keflex 500 mg p.o. t.i.d. CONTRAINDICATION: None. CODE STATUS: Full code. INPATIENT MANAGER OFFICE SERVICES: Dr. Sanchez was consulted while in the hospital. TEST RESULTS PENDING ON DISCHARGE: None. ALLERGIES: BACTRIM. DISCHARGE PLAN: Posthospital, the patient will follow up with primary care physician in one week. The patient is advised to monitor his blood pressure and take blood pressure medication if blood pressure is more than 120 systolic. He may need as an outpatient basis a blood pressure medication adjustment. HOSPITAL COURSE: A 68-year-old male with above-mentioned medical problem, who was admitted by CRISTELA Jackson. Please see her H and P for further details. The patient was having acute encephalopathy with confusion. He was also having sepsis criteria. The patient was febrile, tachycardic, and routine blood test also showed leukocytosis with left shift. His source of infection was cellulitis on the left lower extremity. The patient was initially treated with vancomycin and Zosyn, and subsequently Dr. Sanchez was consulted and Dr. Sanchez recommended to continue only Rocephin. The patient had significant clinical improvement. The patient was able to ambulate without any significant pain. His erythema, tenderness, and swelling on the left lower extremity significantly improved. On discharge, as per Dr. Sanchez' recommendation, we changed to Keflex for another 10 days and subsequently, the patient will follow up with primary care physician versus Dr. Sanchez for prophylactic therapy with Penicillin VK to prevent recurrent cellulitis. Necessary patient education about prevention of cellulitis with foot care, moisturizer application and elastic stocking discussed with the patient and family member on the day of discharge. At this point, the patient is doing much better. I have seen and examined the patient at bedside today. PHYSICAL EXAMINATION: VITAL SIGNS: Currently, temperature 98.5, pulse 71, respiratory rate 18, saturation 95% on room air, blood pressure 136/76, weight 238 pounds. GENERAL: The patient is currently alert and oriented x3. No obvious acute distress. HEENT: Head; normocephalic, atraumatic. Eyes; pupils round, reactive to light. Extraocular muscle intact. ENT; oropharynx within normal limits. Moist mucous membranes. No oral lesion. No pharyngeal erythema. No exudate. NECK: Supple. No JVD. No thyromegaly. No carotid bruit. No jugular venous distention. LUNGS: Clear to auscultation without any rhonchi or rales. CARDIAC: S1 and S2, regular without any murmur. ABDOMEN: Soft and benign. EXTREMITIES: No edema. NEUROLOGIC: Nonfocal examination. Overall, the patient is medically stable for discharge. All new medication prescription sent to his pharmacy. Job ID: [id number]
== END 2018-11-21 15:01 | disposition home or self-care (01) | DRG 871 ==
LOC: SCSER 21:27 → 2NO 23:52 → ERHOLD 11-18 00:01 → 2NO 11-18 00:39 → T4-A 11-20 13:57
PROVIDERS: ADMIT Internal Medicine; ATTEND Internal Medicine
DX: A41.9 Sepsis, unspecified organism (principal); G93.41 Metabolic encephalopathy; L03.116 Cellulitis of left lower limb; E11.9 Type 2 diabetes mellitus without complications; E78.5 Hyperlipidemia, unspecified; I10 Essential (primary) hypertension; F10.20 Alcohol dependence, uncomplicated; E66.01 Morbid (severe) obesity due to excess calories; Z68.38 Body mass index [BMI] 38.0-38.9, adult; Z79.84 Long term (current) use of oral hypoglycemic drugs; Z79.899 Other long term (current) drug therapy
CPT/HCPCS: 36415; 36416; 70450; 71045; 71046; 80048; 80053; 80202; 80307; 81003; 81015; 82550; 82805; 83605; 83735; 83880; 84443; 84484; 85025; 85379; 86140; 87040; 87086; 87633; 87804; 93005; 93970; 96361; 96365; J0456; J0696; J2543; J3370; J3490; J7050; J7620; S0028

== ENCOUNTER 2018-12-07 13:16 | Outpatient (CLI) | payer MEDICARE ==
[~2018-12-07 13:16] MED LIST: Gadobenate Dimeglumine 529 MG/1 ML (20ML VIAL) ONE
--- NOTE | 2018-12-07 16:24 | MRI ---
EXAM: MRI of the brain without and with contrast HISTORY: Pineal cyst COMPARISON: CT brain 11/18/2018 TECHNIQUE: Multiplanar multisequence MR images were obtained of the brain without and with IV contras t. FINDINGS: The brain demonstrates normal signal intensity on all obtained sequences. No restricted diffusion. No abnormal enhancement. No hydronephrosis. No extra-axial fluid collection or intracranial hemorrhage. No obvious pineal cyst is seen. The expected flow voids are present. Corpus callosum, pituitary, and craniocervical junction are within normal limits. The calvarium and overlying soft tissues are unremarkable. The paranasal sinuses and mastoid air cells are well aerated. IMPRESSION: No evidence of acute intracranial abnormality.
== END 2018-12-07 13:17 | disposition home or self-care (01) ==
LOC: SCSMRI 13:16
PROVIDERS: ATTEND Family Medicine
DX: E34.8 Other specified endocrine disorders (principal)
CPT/HCPCS: 70553; A9577

== ENCOUNTER 2021-11-04 08:29 | Outpatient (CLI) | payer MEDICARE | END 2021-11-04 08:30 | disposition home or self-care (01) | LOC: SCSRAD 08:29 | PROVIDERS: ATTEND Family Medicine | DX: M25.562 Pain in left knee (principal) ==